=== PATIENT | female | born 1990 ===

== ENCOUNTER 2024-06-11 08:54 | Outpatient (REF) | payer OTHER, SELFPAY ==
--- NOTE | ~2024-06-11 | XR_ITS ---
EXAMINATION: XR ANKLE 3 OR MORE VIEWS RIGHT HISTORY: M25.579 - Pain in unspecified ankle and joints of unspecified foot COMPARISON: There are no prior studies available for comparison. FINDINGS: Three views of the right ankle are submitted. There is a subcentimeter lucency with sclerotic margin in the calcaneus which may represent a cyst. The patient is status post internal fixation of the distal fibula with a sideplate and multiple orthopedic screws. No new fracture is seen. The joint spaces are preserved. The soft tissues are unremarkable. XR/XR ankle RT min 3V IMPRESSION: Internal fixation of the distal fibula. Electronically signed by: Tomas Rhodes MD 06/11/2024 01:53 PM EDT
== END 2024-06-11 08:55 | disposition home or self-care (01) ==
LOC: HO.HOSX 08:54
PROVIDERS: Visit Provider Orthopaedic Surgery
DX: M25.571 Pain in right ankle and joints of right foot (principal); T84.84XA Pain due to internal orthopedic prosthetic devices, implants and grafts, initial encounter
CPT/HCPCS: 73610; 99202

== ENCOUNTER 2024-06-11 10:00 | Outpatient (AMB) | payer OTHER, SELFPAY ==
--- NOTE | 2024-06-11 10:04 | MHC.OFFVIS ---
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 Hx of right ankle ORIF s/p work injury. Patient reports she was working for [employer] when she was attacked and tackled by a dog who bit her ankle. She was treated at [facility] for this and completed physical therapy. She was provided with a lace up ankle brace for stability and pain. Patient reports that she has had pain in the ankle for quite some time now, she struggles being on her feet for long periods of time. 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 She states she does have pain over the lateral malleolus. She feels sensitive when she hits this or occasionally has sensation of numbness and tingling when she does too much. She wants to have the hardware removed. [facility] Surgical History (Updated 06/11/24 @ 10:09 by Rosalba Osullivan CMA) Status post ORIF of fracture of ankle Social History (Updated 06/11/24 @ 10:08 by Rosalba Osullivan CMA) Current occupational status: employed Current occupation: Quarry Worker Physical Exam Vital Signs: BMI result Body Mass Index 34.8 Extrem Other: A well-healed incision with full range of motion of the right ankle. She is sensitive over the distal aspect of the lateral plate. No unusual skin changes. No evidence of infection. No swelling. Results Reviewed Results Reviewed: I personally reviewed relevant radiographs. Right ankle radiographs demonstrate a 6 hole lateral malleolus plate in expected postop position with a healed distal fibula fracture Assessment & Plan Assessment & Plan (1) Painful orthopaedic hardware: Code(s): T84.84XA - Pain due to internal orthopedic prosthetic devices, implants and grafts, initial encounter Category: Medical Plan: 33-year-old male care with painful lateral malleolus hardware. I discussed treatment options. I recommend hardware removal. I discussed with her the surgery and the expected recovery time. I also discussed the risks, benefits and alternatives such as infection, pain, incomplete symptom resolution. She expressed understanding and we will proceed forward accordingly. Orders: Orders XR ankle RT min 3V Today M25.579 - Pain in unspecified ankle and joints of unspecified foot Coding Level of Care Code New Pt Level 4 (01886) Diagnoses Painful orthopaedic hardware T84.84XA
[2024-06-11 10:06] VITALS: BMI 34.8
== END 2024-06-11 10:25 | disposition home or self-care (01) ==
LOC: HO.HOS 10:00
PROVIDERS: PCP Family Medicine; Visit Provider Orthopaedic Surgery
DX: T84.84XA Pain due to internal orthopedic prosthetic devices, implants and grafts, initial encounter (principal)
CPT/HCPCS: 99204

== ENCOUNTER → 2024-06-11 10:01 | Outpatient (BNV) | payer OTHER, SELFPAY | PROVIDERS: Visit Provider Radiology Diagnostic Radiology | DX: M25.571 Pain in right ankle and joints of right foot (principal) | CPT/HCPCS: 73610 ==